=== PATIENT | male | born 1995 | race Two or more races ===

== ENCOUNTER 2020-02-23 12:26 | Emergency (ER) | payer OTHER ==
--- NOTE | 2020-02-23 12:58 | ER Document Report ---
ED Medical Screen (RME) - General Chief Complaint: Chest Pain Stated Complaint: MUSCLE PAIN Time Seen by Provider: 02/23/20 12:55 Notes: Patient is a 24-year-old male who presents emergency department with a chief complaint of chest discomfort. He was seen by [facility] 6 days ago and was tested for COVID-19, which came back negative. He was also given azithromycin and finished his medications, but states that he still continues to have the discomfort in his chest. Also states that he has some weakness. Exam: S1, S2. I have greeted and performed a rapid initial assessment of this patient. A comprehensive ED assessment and evaluation of the patient, analysis of test results and completion of medical decision making process will be conducted by an additional ED providers. - Related Data Allergies/Adverse Reactions: No Known Allergies Allergy (Unverified 02/23/20 12:48) Past Medical History - Social History Chew tobacco use (# tins/day): No Frequency of alcohol use: None Drug Abuse: None Physical Exam - Vital signs Vitals: Temp Pulse Resp BP Pulse Ox 99.1 F 84 16 105/58 L 96 02/23/20 12:35 02/23/20 12:35 02/23/20 12:35 02/23/20 12:35 02/23/20 12:35 Course - Vital Signs Vital signs: Temp Pulse Resp BP Pulse Ox 99.1 F 84 16 105/58 L 96 02/23/20 12:35 02/23/20 12:35 02/23/20 12:35 02/23/20 12:35 02/23/20 12:35
--- NOTE | 2020-02-23 13:20 | ER Document Report ---
ED General - General Chief Complaint: Chest Pain Stated Complaint: MUSCLE PAIN Time Seen by Provider: 02/23/20 12:55 Mode of Arrival: Ambulatory Information source: Patient Notes: Patient is an otherwise healthy 22-year-old male presenting with chief complaint of chest discomfort, cough, body aches and sore throat. Patient reports symptoms have been ongoing for 10 days. He denies any recent travel or any exposure to any known positive COVID-19 patients. He does report he was tested for COVID-19 and states it was negative. He states his symptoms have persisted. He denies any nausea, vomiting, diarrhea or fever. - Related Data Allergies/Adverse Reactions: No Known Allergies Allergy (Unverified 02/23/20 12:48) Past Medical History - General Information source: Patient - Social History Smoking Status: Never Smoker Chew tobacco use (# tins/day): No Frequency of alcohol use: None Drug Abuse: None Family History: Reviewed & Not Pertinent Patient has homicidal ideation: No - Medical History Medical History: Negative Surgical Hx: Negative - Immunizations Immunizations up to date: Yes Review of Systems - Review of Systems EENT: See HPI Cardiovascular: See HPI Respiratory: See HPI Musculoskeletal: See HPI -: Yes All other systems reviewed and negative Physical Exam - Vital signs Vitals: Temp Pulse Resp BP Pulse Ox 99.1 F 84 16 105/58 L 96 02/23/20 12:35 02/23/20 12:35 02/23/20 12:35 02/23/20 12:35 02/23/20 12:35 - Notes Notes: PHYSICAL EXAMINATION: GENERAL: Well-appearing, well-nourished and in no acute distress. HEAD: Atraumatic, normocephalic. EYES: Pupils equal round and reactive to light, extraocular movements intact, sclera anicteric, conjunctiva are normal. ENT: Nares patent, oropharynx clear without exudates. Moist mucous membranes. NECK: Normal range of motion, supple without lymphadenopathy LUNGS: Breath sounds clear to auscultation bilaterally and equal. No wheezes rales or rhonchi. HEART: Regular rate and rhythm without murmurs ABDOMEN: Soft, nontender, nondistended abdomen. No guarding, no rebound. No masses appreciated. Musculoskeletal: Normal range of motion, no pitting or edema. No cyanosis. NEUROLOGICAL: Cranial nerves grossly intact. Normal speech, normal gait. Normal sensory, motor exams PSYCH: Normal mood, normal affect. SKIN: Warm, Dry, normal turgor, no rashes or lesions noted. Course - Re-evaluation Re-evalutation: 02/23/20 14:11 Patient appears well, nontoxic, vital signs within normal limits. Chest x-ray unremarkable. Labs unremarkable. Likely viral infection. Patient will be tested for COVID-19 despite already having a negative COVID-19 test he does have multiple symptoms so I feel it would be worthwhile to test him again. Patient verbalized understanding of the ED return precautions, he understands the need to self quarantine until he gets his test results back. - Vital Signs Vital signs: Temp Pulse Resp BP Pulse Ox 99.1 F 84 16 105/58 L 96 02/23/20 12:35 02/23/20 12:35 02/23/20 12:35 02/23/20 12:35 02/23/20 12:35 - Laboratory Result Diagrams: 02/23/20 13:13 02/23/20 13:13 Laboratory results interpreted by me: 02/23/20 02/23/20 13:13 13:13 Hgb 17.2 H Calcium 10.3 H Discharge - Discharge Clinical Impression: Body aches, Sore throat, Encounter for screening laboratory testing for COVID- 19 virus Chest pain Qualifiers: Chest pain type: unspecified Qualified Code(s): R07.9 - Chest pain, unspecified Fatigue Qualifiers: Fatigue type: unspecified Qualified Code(s): R53.83 - Other fatigue Condition: Stable Disposition: HOME, SELF-CARE Additional Instructions: Today your chest x-ray did not show any signs of pneumonia. I suspect your cough is coming from a viral infection. Your oxygen level is not so low that you need to be admitted. If simply walking across the room makes you feel like you are going to pass out or like you just walked up 2 flights of steps please return to the emergency department. Please let any healthcare personnel that you see know that you have been tested for coronavirus. This includes if you need to return to the emergency department. You were tested for coronavirus (COVID 19) but these results may take 2-3 days or more to come back. The health department will call you with results. Please stay in your house until they are resulted back or until you have been completely symptom-free for at least 3 days. Increase your fluid intake. Tylenol or ibuprofen for body aches or pain.
[2020-02-23 13:24] LABS: ABSOLUTE LYMPHOCYTES (AUTO) 1.3 10^3/uL (0.5-4.7); ABSOLUTE MONOCYTES (AUTO) 0.4 10^3/uL (0.1-1.4); ABSOLUTE NEUT (AUTO) 3.1 10^3/uL (1.7-8.2); BASOPHILS % (AUTO) 0.6 % (0-2); EOSINOPHILS % (AUTO) 0.8 % (0-6); HEMATOCRIT 48.9 % (37.9-51.0); HEMOGLOBIN 17.2 g/dL (13.5-17.0); LYMPHOCYTES % (AUTO) 26.8 % (13-45); MEAN CORPUSCULAR HEMOGLOBIN 30.9 pg (27.0-33.4); MEAN CORPUSCULAR HGB CONC 35.1 g/dL (32.0-36.0); MEAN CORPUSCULAR VOLUME 88 fl (80-97); MONOCYTES % (AUTO) 8.1 % (3-13); PLATELET COUNT 270 10^3/uL (150-450); RED BLOOD COUNT 5.55 10^6/uL (4.35-5.55); RED CELL DISTRIBUTION WIDTH 13.4 % (11.5-14.0); SEGMENTED NEUTROPHILS % (AUTO) 63.7 % (42-78); TOTAL CELLS COUNTED % (AUTO) 100 %; WHITE BLOOD COUNT 4.8 10^3/uL (4.0-10.5)
[2020-02-23 13:45] LABS: ALBUMIN 4.7 g/dL (3.5-5.0); ALKALINE PHOSPHATASE 56 U/L (38-126); ANION GAP 7 (5-19); ASPARTATE AMINO TRANSFERASE 19 U/L (17-59); BLOOD UREA NITROGEN 13 mg/dL (7-20); CALCIUM 10.3 mg/dL (8.4-10.2); CARBON DIOXIDE 29 mmol/L (22-30); CHLORIDE 101 mmol/L (98-107); GLUCOSE 91 mg/dL (75-110); POTASSIUM 4.1 mmol/L (3.6-5.0); TOTAL PROTEIN 7.6 g/dL (6.3-8.2)
--- NOTE | 2020-02-23 13:51 | RADIOLOGY REPORT (SQ) ---
EXAM DESCRIPTION: CHEST 2 VIEWS IMAGES COMPLETED DATE/TIME: 02/23/2020 1:22 pm REASON FOR STUDY: chest discomfort COMPARISON: None. EXAM PARAMETERS: NUMBER OF VIEWS: two views TECHNIQUE: Digital Frontal and Lateral radiographic views of the chest acquired. RADIATION DOSE: NA LIMITATIONS: none FINDINGS: LUNGS AND PLEURA: No opacities, masses or pneumothorax. No pleural effusion. MEDIASTINUM AND HILAR STRUCTURES: No masses or contour abnormalities. HEART AND VASCULAR STRUCTURES: Heart normal size. No evidence for failure. BONES: No acute findings. HARDWARE: None in the chest. OTHER: No other significant finding. IMPRESSION: NO ACUTE RADIOGRAPHIC FINDING IN THE CHEST. TECHNICAL DOCUMENTATION: JOB ID: [id number] 2010 [employer]- All Rights Reserved Reading location - IP/workstation name: [email or web address]
[2020-02-23 14:38] VITALS: BP 101/53
--- NOTE | 2020-02-23 20:11 | EKG REPORT ---
SEVERITY:- ABNORMAL ECG - SINUS RHYTHM ABNORMAL Q SUGGESTS ANTERIOR INFARCT, CLINICAL CORRELATION NEEDED : Confirmed by: Hari Gannon MD 23-Feb-2020 20:11:34
== END 2020-02-23 14:37 | disposition home or self-care (01) ==
LOC: ER 12:26
DX: J02.9 Acute pharyngitis, unspecified (principal); R07.9 Chest pain, unspecified; R53.83 Other fatigue; M79.10 Myalgia, unspecified site; Z20.828 Contact with and (suspected) exposure to other viral communicable diseases
CPT/HCPCS: 93005; 99284; 36415; 85025; 87635; 80053; 71046; 93010; C9803